=== PATIENT | male | born 1950 | race African-American/Black ===

== ENCOUNTER 2019-01-12 15:57 | Emergency (ER) | payer MEDICARE ==
[~2019-01-12] VITALS: Ht 175.3 cm; Wt 82.0 kg
[2019-01-12] MEDS ORDERED: SODIUM CHLORIDE 0.9% 1,000 ML IV ONE (16:25)
[2019-01-12 16:49] LABS: BASOPHILS % 0.9 % (0.0-2.0); EOSINOPHILS % 2.9 % (0.0-5.0); HEMATOCRIT. 45.6 % (42.0-52.0); HEMOGLOBIN. 15.6 g/dL (14.0-18.0); LYMPHOCYTES % 45.8 % (20.0-50.0); MEAN CORPUSCULAR HEMOGLOBIN 34.4 pg (28.0-32.0); MEAN CORPUSCULAR VOLUME 100.7 fL (80.0-94.0); MEAN PLATELET VOLUME 9.4 fl (7.4-10.4); MONOCYTES % 10.3 % (2.0-8.0); NEUTROPHILS % 40.1 % (40.0-76.0); PLATELET 96 x1000/uL (130-400); RED BLOOD CELL COUNT 4.53 mill/uL (4.7-6.1); RED CELL DISTRIBUTION WIDTH 13.8 % (11.6-14.6)
[2019-01-12 16:53] LABS: CHLORIDE 103 mEq/L (98-107)
[2019-01-12 16:57] LABS: ETHANOL BLOOD < 10 mg/dL
[2019-01-12 17:01] LABS: CLARITY URINE CLEAR (CLEAR); COLOR URINE YELLOW (YELLOW); KETONES URINE NEGATIVE (NEGATIVE); LEUKOCYTE ESTERASE URINE NEGATIVE (NEGATIVE); NITRITE URINE NEGATIVE (NEGATIVE); OCCULT BLOOD URINE NEGATIVE (NEGATIVE); PH URINE 6.5 (4.5-8.0); PROTEIN URINE 1+ (NEGATIVE); SPECIFIC GRAVITY URINE 1.017 (1.005-1.030)
[2019-01-12 17:14] LABS: *BENZODIAZEPINES SCREEN URINE NEGATIVE (NEGATIVE); *COCAINE SCREEN URINE NEGATIVE (NEGATIVE); METHADONE URINE SCREEN NEGATIVE (NEGATIVE); OPIATES URINE SCREEN NEGATIVE (NEGATIVE)
[2019-01-12 17:15] LABS: *AMPHETAMINES SCREEN URINE NEGATIVE (NEGATIVE); *BARBITURATES SCREEN URINE NEGATIVE (NEGATIVE); CANNABINOID URINE SCREEN PRESUMTIVE POSITIVE (NEGATIVE); PHENCYCLIDINE URINE SCREEN NEGATIVE (NEGATIVE)
[2019-01-12 19:30] VITALS: BP 131/75
== END 2019-01-12 20:00 | disposition home or self-care (01) ==
LOC: ER 15:57
DX: I95.9 Hypotension, unspecified (principal); F12.10 Cannabis abuse, uncomplicated; F10.10 Alcohol abuse, uncomplicated; F17.200 Nicotine dependence, unspecified, uncomplicated; Y90.0 Blood alcohol level of less than 20 mg/100 ml
CPT/HCPCS: 36415; 80053; 80305; 80307; 80320; 80329; 81003; 84484; 85025; 93005; 99284; J7030; G0480

== ENCOUNTER → 2020-01-22 | Outpatient (CLI) | payer MEDICARE, MEDICAID ==
[~2020-01-22] MED LIST: AMLO5TAB88 PO; ASPI-1158 PO; ATOR20TA65 PO; LEVO50TA8 PO; METF-414 PO; METO25TA6 PO; TIMO5DRO32 BOTHEYE; TRAV2.5D BOTHEYE
== END | disposition home or self-care (01) ==
LOC: LAB 08:58
PROVIDERS: ATTEND Ophthalmology
DX: Z01.812 Encounter for preprocedural laboratory examination (principal); Z20.828 Contact with and (suspected) exposure to other viral communicable diseases
CPT/HCPCS: C9803; U0003

== ENCOUNTER 2020-01-23 09:59 | Day surgery (SDC) | payer MEDICARE, MEDICAID ==
[~2020-01-23] VITALS: Ht 180.3 cm; Wt 90.7 kg
[~2020-01-23 09:59] MED LIST changes: -AMLO5TAB88 PO; -ASPI-1158 PO; -ATOR20TA65 PO; +BALANCED SALT IRRIG SOLN COMB1 500ML OP ONE; +CYCLOPENTOLATE HCL 1% OPHTH DROPS 2ML RIGHTEYE ONE; -LEVO50TA8 PO; -METF-414 PO; -METO25TA6 PO; +PHENYLEPHRINE HCL 10% OPHTH DROPS 5ML RIGHTEYE ONE; -TIMO5DRO32 BOTHEYE; -TRAV2.5D BOTHEYE; +TROPICAMIDE 1% OPHTH DROPS 15ML RIGHTEYE ONE
[2020-01-23] MEDS ORDERED: CIPROFLOXACIN 0.3% OPHTH SOLN 2.5ML ONE (11:30)
[2020-01-23] MEDS ORDERED: BALANCED SALT IRRIG SOLN 15ML ONE (11:30)
[2020-01-23] MEDS ORDERED: TETRACAINE 0.5% OPHTH DROPS 4ML ONE (11:30)
[2020-01-23] MEDS ORDERED: LIDOCAINE HCL/PF 2% 20 MG/ML 10ML VIAL ONE (11:30)
[2020-01-23] MEDS ORDERED: PREDNISOLONE ACETATE 1% OPHTH DROPS 5ML ONE (11:30)
[2020-01-23] MEDS ORDERED: LACTATED RINGERS 1,000 ML IV SCH (11:30)
[2020-01-23] MEDS ORDERED: ATOR20TA65 PO (14:01)
[2020-01-23] MEDS ORDERED: ASPI-1158 PO (14:01)
[2020-01-23] MEDS ORDERED: TRAV2.5D BOTHEYE (14:01)
[2020-01-23] MEDS ORDERED: AMLO5TAB88 PO (14:01)
[2020-01-23] MEDS ORDERED: METO25TA6 PO (14:01)
[2020-01-23] MEDS ORDERED: METF-414 PO (14:01)
[2020-01-23] MEDS ORDERED: LEVO50TA8 PO (14:01)
[2020-01-23] MEDS ORDERED: TIMO5DRO32 BOTHEYE (14:01)
[2020-01-23] MEDS ORDERED: HYALURONATE SODIUM 10 MG/ML 0.55ML SYRINGE IO ONE ×2 (14:54→15:21)
== END 2020-01-23 17:15 | disposition home or self-care (01) ==
LOC: OR 09:59
PROVIDERS: ATTEND Ophthalmology
DX: E11.36 Type 2 diabetes mellitus with diabetic cataract (principal); H25.89 Other age-related cataract; I10 Essential (primary) hypertension; E78.00 Pure hypercholesterolemia, unspecified; E03.9 Hypothyroidism, unspecified; D69.6 Thrombocytopenia, unspecified; Z79.84 Long term (current) use of oral hypoglycemic drugs; Z79.82 Long term (current) use of aspirin; Z79.899 Other long term (current) drug therapy; Z98.890 Other specified postprocedural states; Z87.891 Personal history of nicotine dependence
CPT/HCPCS: 66984; 82962; 93005; J3490; V2632

== ENCOUNTER 2022-09-24 10:48 | Emergency (ER) | payer MEDICARE, MEDICAID ==
[~2022-09-24] VITALS: Ht 180.3 cm; Wt 87.5 kg
[~2022-09-24 10:48] MED LIST changes: +AMLO5TAB88 PO; +ASPI-1406 PO; +ATOR20TA65 PO; -BALANCED SALT IRRIG SOLN COMB1 500ML OP ONE; -CYCLOPENTOLATE HCL 1% OPHTH DROPS 2ML RIGHTEYE ONE; +LEVO50TA8 PO; +METF-414 PO; +METO25TA6 PO; +P20 MT; -PHENYLEPHRINE HCL 10% OPHTH DROPS 5ML RIGHTEYE ONE; +POLY15DR31 RIGHTEYE; +TIMO5DRO32 BOTHEYE; +TRAV2.5D9 BOTHEYE; -TROPICAMIDE 1% OPHTH DROPS 15ML RIGHTEYE ONE; +VALA10002 MT
[2022-09-24 10:57] VITALS: TEMP 98.4; O2SAT 98
[2022-09-24 12:00] VITALS: BP 158/65; PULSE 78; RESP 16
[2022-09-24] MEDS ORDERED: IBUPROFEN 400MG TABLET PO ONE (12:00)
== END 2022-09-24 13:14 | disposition home or self-care (01) ==
LOC: ER 10:48
DX: M79.641 Pain in right hand (principal); F12.10 Cannabis abuse, uncomplicated; I10 Essential (primary) hypertension; Z98.890 Other specified postprocedural states; Z79.899 Other long term (current) drug therapy
CPT/HCPCS: 29125; 73130; 99283